=== PATIENT | female | born 1940 | race Caucasian/White ===

== ENCOUNTER 2024-06-01 18:18 | Emergency (ER) | payer OTHER ==
[~2024-06-01] VITALS: Ht 154.9 cm; Wt 70.3 kg
[2024-06-01 18:39] VITALS: TEMP 97.4
[2024-06-01] MEDS: LIDOCAINE 1% W/EPINEPHRINE 20 ML VIAL INJ ONE (20:27)
[2024-06-01] MEDS: TETANUS/DIPHTHERIA TOX ADULT 0.5 ML SYR IM ONE (20:27)
[2024-06-01] MEDS ORDERED: ONDANSETRON HCL 4 MG ORAL DISINTEGRATING TAB ONE (20:36)
[2024-06-01] MEDS: ONDANSETRON HCL 4 MG ORAL DISINTEGRATING TAB PO ONE (20:36)
[2024-06-01] MEDS: TRAMADOL HCL 50 MG TAB PO ONE (20:37)
[2024-06-01 20:40] VITALS: PULSE 64; RESP 16
[2024-06-01] MEDS ORDERED: ONDANSETRON ODT4 MG SL (21:37)
[2024-06-01] MEDS ORDERED: ULTRAM 50MG50 MG PO (21:37)
[2024-06-01 21:54] VITALS: BP 135/84; PULSE 61; RESP 18; O2SAT 99
== END 2024-06-01 21:50 | disposition home or self-care (01) ==
LOC: ER 18:53
DX: S01.112A Laceration without foreign body of left eyelid and periocular area, initial encounter (principal); S62.102A Fracture of unspecified carpal bone, left wrist, initial encounter for closed fracture; W01.0XXA Fall on same level from slipping, tripping and stumbling without subsequent striking against object, initial encounter; Y92.019 Unspecified place in single-family (private) house as the place of occurrence of the external cause
CPT/HCPCS: 12011; 70450; 72125; 73110; 73200; 90471; 90714; 99284; Q0162